=== PATIENT | male | born 1995 | race African-American/Black ===

== ENCOUNTER 2020-05-26 14:35 | Emergency (ER) | payer OTHER ==
[~2020-05-26] VITALS: Ht 175.3 cm; Wt 87.9 kg
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
[2020-05-26] MEDS ORDERED: AMOX875T PO (17:42)
[2020-05-26] MEDS ORDERED: KETO10TAB PO (17:43)
[2020-05-26] MEDS ORDERED: CYCL5TAB PO (17:43)
[2020-05-26] MEDS ORDERED: KETOROLAC TROMETHAMINE 10 MG TAB PO ONE (17:45)
[2020-05-26 17:56] VITALS: BP 125/76
== END 2020-05-26 17:57 | disposition home or self-care (01) ==
LOC: M ED 14:35
DX: S13.4XXA Sprain of ligaments of cervical spine, initial encounter (principal); S09.90XA Unspecified injury of head, initial encounter; H66.90 Otitis media, unspecified, unspecified ear; V43.52XA Car driver injured in collision with other type car in traffic accident, initial encounter; Y92.9 Unspecified place or not applicable; Y93.9 Activity, unspecified; Y99.9 Unspecified external cause status